=== PATIENT | female | born 1980 | race Asian ===

== ENCOUNTER 2017-10-08 18:13 | Emergency (ER) | payer OTHER ==
[~2017-10-08] VITALS: Ht 165.1 cm; Wt 59.1 kg
[2017-10-08] MEDS ORDERED: SODIUM CHLORIDE 0.9% 2,000 ML IV ONE (18:57)
[2017-10-08] MEDS ORDERED: INSULIN REGULAR, HUMAN 100 UNITS/ML IVP ONE (19:00)
[2017-10-08] MEDS ORDERED: HydrALAZINE HCL 20 MG/ML VIAL IVP ONE ×2 (19:00→19:30)
[2017-10-08 19:41] LABS: BASOPHILS % (AUTO) 0.4 % (0.0-2.0); EOSINOPHILS % (AUTO) 1.6 % (1.0-6.0); HEMATOCRIT 41.3 % (36-46); HEMOGLOBIN 14.2 g/dL (12.0-16.0); LYMPHOCYTES # (AUTO) 2.5 K/uL (1.0-4.8); LYMPHOCYTES % (AUTO) 17.7 % (22.0-44.0); MEAN CORPUSCULAR HEMOGLOBIN 30.6 pg (26.0-34.0); MEAN CORPUSCULAR HGB CONC 34.5 G/dL (31.0-37.0); MEAN CORPUSCULAR VOLUME 89 fL (80-100); MONOCYTES % (AUTO) 6.9 % (2.0-9.0); NEUTROPHILS # (AUTO) 10.5 K/uL (1.8-7.7); NEUTROPHILS % (AUTO) 73.4 % (40.0-70.0); PLATELET COUNT (AUTO) 365 K/uL (150-450); RED BLOOD CELL COUNT(AUTO) 4.66 MIL/uL (4.00-5.20)
[2017-10-08] MEDS ORDERED: MetFORMIN HCL 500 MG TABLET PO ONE (19:45)
[2017-10-08] MEDS ORDERED: METOPROLOL TARTRATE 5 MG/5 ML VIAL IVP ONE (19:45)
[2017-10-08] MEDS ORDERED: LISINOPRIL 10 MG TABLET PO ONE (19:45)
[2017-10-08 19:55] LABS: ALANINE AMINOTRANSFERASE 29 U/L (12-78); ALBUMIN 2.9 g/dL (3.4-5.0); ALKALINE PHOSPHATASE 115 U/L (46-116); ANION GAP 10 mmol/L (8-16); ASPARTATE AMINOTRANSFERASE 18 U/L (15-37); BILIRUBIN,TOTAL 0.3 mg/dL (0.1-1.0); CALCIUM, TOTAL 9.3 mg/dL (8.8-10.5); CARBON DIOXIDE 26 mmol/L (22-29); CHLORIDE 96 mmol/L (98-107); CREATININE 0.96 mg/dL (0.60-1.30); GLOMERULAR FILTR. RATE CALC > 60 mL/min (>60); HCG,QUANTITATIVE < 1 mIU/mL (0-6); LIPASE 380 U/L (73-393); POTASSIUM 4.1 mmol/L (3.5-5.1); SODIUM SERUM 132 mmol/L (136-145); TOTAL PROTEIN, SERUM 8.2 g/dL (6.4-8.2); UREA NITROGEN, BLOOD 19 mg/dL (7-18)
[2017-10-08 19:59] LABS: GLUCOSE,RANDOM 440 mg/dL (70-110)
[2017-10-08] MEDS ORDERED: ONDANSETRON HCL 4 MG/2 ML VIAL IVP ONE (20:30)
[2017-10-08 20:39] LABS: APPEARANCE,URINE CLOUDY (CLEAR); BILIRUBIN,URINE NEGATIVE (NEGATIVE); GLUCOSE, URINE (UA) >=1000 mg/dL (NEGATIVE); KETONES,URINE NEGATIVE (NEGATIVE); LEUKOCYTE ESTERASE ,URINE NEGATIVE (NEGATIVE); NITRATE,URINE POSITIVE (NEGATIVE); OCCULT BLOOD,URINE TRACE (NEGATIVE); PROTEIN,URINE SEE CONFIRM (NEGATIVE); UROBILINOGEN,URINE 0.2 mg/dL (<=1.0)
[2017-10-08 20:49] LABS: BACTERIA,URINE Many /HPF (None Seen); SQUAMOUS EPITHELIAL CELL,UR Many /LPF (None Seen); SULFOSALICYLIC ACID,URINE 2+ (Negative)
[2017-10-08 21:12] LABS: B-TYPE NATRIURETIC PEPTIDE 118 pg/mL (0-100)
[2017-10-08 21:37] LABS: GLUCOSE,POINT OF CARE 366 MG/DL (70-110)
[2017-10-08 23:23] VITALS: BP 137/90
== END 2017-10-08 23:27 | disposition home or self-care (01) ==
LOC: EMS 18:17
DX: I16.0 Hypertensive urgency (principal); E11.65 Type 2 diabetes mellitus with hyperglycemia; H53.8 Other visual disturbances; Z91.14 Patient's other noncompliance with medication regimen
CPT/HCPCS: 36415; 70450; 80053; 81001; 82962; 83690; 83880; 84484; 84702; 85025; 87077; 87086; 87186; 96374; 96375; 99291; J0360; J1815; J2405; J7030; 93005

== ENCOUNTER 2020-02-28 09:58 | Emergency (ER) | payer OTHER ==
[~2020-02-28] VITALS: Ht 162.6 cm; Wt 60.9 kg
[2020-02-28 11:18] VITALS: BP 151/88
== END 2020-02-28 11:19 | disposition home or self-care (01) ==
LOC: EMS 09:59
DX: E11.65 Type 2 diabetes mellitus with hyperglycemia (principal); I10 Essential (primary) hypertension; Z79.4 Long term (current) use of insulin

== ENCOUNTER 2020-04-28 17:31 | Emergency (ER) | payer OTHER ==
[~2020-04-28] VITALS: Ht 162.6 cm; Wt 61.4 kg
[2020-04-28] MEDS ORDERED: GABA-1181 PO (17:38)
[2020-04-28] MEDS ORDERED: ROSU20TA23 PO (17:38)
[2020-04-28] MEDS ORDERED: BASAGLAR INSULIN SQ (17:38)
[2020-04-28] MEDS ORDERED: DULA0.75 SQ (17:38)
[2020-04-28] MEDS ORDERED: HYDR-1475 PO (17:38)
[2020-04-28] MEDS ORDERED: LOSA100T58 PO (19:08)
[2020-04-28] MEDS ORDERED: AMLO10TA55 PO (19:08)
[2020-04-28] MEDS ORDERED: CETI10TA58 PO (19:08)
[2020-04-28] MEDS ORDERED: GLIP5TAB11 PO (19:08)
[2020-04-28] MEDS ORDERED: INSU100I26 SQ (19:08)
[2020-04-28] MEDS ORDERED: ACETAMINOPHEN 325 MG TABLET PO ONE (19:15)
[2020-04-28] MEDS ORDERED: SODIUM CHLORIDE 0.9% 1,000 ML IV ONE (19:15)
[2020-04-28 19:29] LABS: BASOPHILS % (AUTO) 0.6 % (0.0-2.0); EOSINOPHILS % (AUTO) 4.6 % (1.0-6.0); HEMOGLOBIN 14.5 g/dL (12.0-16.0); LYMPHOCYTES # (AUTO) 2.4 K/uL (1.0-4.8); LYMPHOCYTES % (AUTO) 19.3 % (22.0-44.0); MEAN CORPUSCULAR HEMOGLOBIN 29.4 pg (26.0-34.0); MEAN CORPUSCULAR HGB CONC 32.9 G/dL (31.0-37.0); MEAN CORPUSCULAR VOLUME 90 fL (80-100); MONOCYTES # (AUTO) 0.9 K/uL (0.1-1.0); MONOCYTES % (AUTO) 7.3 % (2.0-9.0); NEUTROPHILS # (AUTO) 8.4 K/uL (1.8-7.7); NEUTROPHILS % (AUTO) 68.2 % (40.0-70.0); PLATELET COUNT (AUTO) 326 K/uL (150-450); RED BLOOD CELL COUNT(AUTO) 4.91 MIL/uL (4.00-5.20); RED CELL DISTRIBUTION WIDTH 12.6 % (11.5-14.5)
[2020-04-28 19:38] LABS: ANION GAP 8 mmol/L (8-16); CALCIUM, TOTAL 9.5 mg/dL (8.8-10.5); CARBON DIOXIDE 29 mmol/L (22-29); CHLORIDE 92 mmol/L (98-107); CREATININE 1.94 mg/dL (0.60-1.30); GLOMERULAR FILTR. RATE CALC 29 mL/min (>60); GLUCOSE,RANDOM 386 mg/dL (70-110); POTASSIUM 3.6 mmol/L (3.5-5.1); SODIUM SERUM 129 mmol/L (136-145); UREA NITROGEN, BLOOD 30 mg/dL (7-18)
[2020-04-28 19:50] LABS: HCG,QUANTITATIVE < 1 mIU/mL (0-6)
[2020-04-28 20:18] VITALS: BP 150/90
[2020-04-28 20:21] LABS: APPEARANCE,URINE CLOUDY (CLEAR); BILIRUBIN,URINE NEGATIVE (NEGATIVE); GLUCOSE, URINE (UA) >=1000 mg/dL (NEGATIVE); KETONES,URINE NEGATIVE (NEGATIVE); LEUKOCYTE ESTERASE ,URINE MODERATE (NEGATIVE); NITRATE,URINE POSITIVE (NEGATIVE); OCCULT BLOOD,URINE MODERATE (NEGATIVE); PROTEIN,URINE SEE CONFIRM (NEGATIVE); UROBILINOGEN,URINE 0.2 mg/dL (<=1.0)
[2020-04-28 20:34] LABS: SULFOSALICYLIC ACID,URINE 4+ (Negative)
[2020-04-28 20:36] LABS: BACTERIA,URINE Many /HPF (None Seen)
[2020-04-28 20:37] LABS: WBC,URINE 51-100 /HPF (0-5)
== END 2020-04-28 20:19 | disposition home or self-care (01) ==
LOC: EMS 17:34
DX: N39.0 Urinary tract infection, site not specified (principal); N28.9 Disorder of kidney and ureter, unspecified; E11.65 Type 2 diabetes mellitus with hyperglycemia; I10 Essential (primary) hypertension; Z91.040 Latex allergy status
CPT/HCPCS: 36415; 80048; 81001; 82962; 84702; 85025; 87086; 99283; J7030

== ENCOUNTER 2022-04-22 19:20 | Inpatient (IN) | payer OTHER ==
[~2022-04-22] VITALS: Ht 162.6 cm; Wt 67.0 kg
[~2022-04-22 19:20] MED LIST: AMLO10TA55 PO; CETI10TA58 PO; DULA0.75 SQ; GABA-1181 PO; GLIP5TAB11 PO; HYDR25TA2 PO; INSU100I26 SQ; LOSA100T58 PO; ROSU20TA73 PO
[2022-04-22] MEDS ORDERED: AMLO2.5T29 PO (19:42)
[2022-04-22] MEDS ORDERED: GABA-1181 PO ×2 (19:42→21:28)
[2022-04-22] MEDS ORDERED: INSU100V SQ ×2 (19:42)
[2022-04-22] MEDS ORDERED: TAMS-13 PO (19:42)
[2022-04-22] MEDS ORDERED: LOSA-381 PO (19:42)
[2022-04-22] MEDS ORDERED: AZEL6DRO5 OU (19:42)
[2022-04-22] MEDS ORDERED: KETO10DR3 OU (19:42)
[2022-04-22] MEDS ORDERED: CHOL500013 PO (19:42)
[2022-04-22] MEDS ORDERED: ALBU8HFA IH (19:43)
[2022-04-22 21:08] LABS: EOSINOPHILS % (AUTO) 5.5 % (1.0-6.0); HEMATOCRIT 34.7 % (36-46); HEMOGLOBIN 11.3 g/dL (12.0-16.0); LYMPHOCYTES # (AUTO) 2.8 K/uL (1.0-4.8); LYMPHOCYTES % (AUTO) 21.6 % (22.0-44.0); MEAN CORPUSCULAR HEMOGLOBIN 29.7 pg (26.0-34.0); MEAN CORPUSCULAR HGB CONC 32.5 G/dL (31.0-37.0); MEAN CORPUSCULAR VOLUME 92 fL (80-100); MONOCYTES # (AUTO) 1.2 K/uL (0.1-1.0); MONOCYTES % (AUTO) 9.2 % (2.0-9.0); NEUTROPHILS # (AUTO) 8.2 K/uL (1.8-7.7); NEUTROPHILS % (AUTO) 62.7 % (40.0-70.0); PLATELET COUNT (AUTO) 407 K/uL (150-450); RED BLOOD CELL COUNT(AUTO) 3.79 MIL/uL (4.00-5.20)
[2022-04-22 21:27] LABS: B-TYPE NATRIURETIC PEPTIDE 75 pg/mL (0-100)
[2022-04-22 21:28] LABS: ANION GAP 11 mmol/L (8-16); CALCIUM, TOTAL 8.3 mg/dL (8.8-10.5); CARBON DIOXIDE 16 mmol/L (22-29); CHLORIDE 109 mmol/L (98-107); CREATININE 6.63 mg/dL (0.60-1.30); GLOMERULAR FILTR. RATE CALC 7 mL/min (>60); GLUCOSE,RANDOM 195 mg/dL (70-110); POTASSIUM 5.5 mmol/L (3.5-5.1); SODIUM SERUM 136 mmol/L (136-145); UREA NITROGEN, BLOOD 63 mg/dL (7-18)
[2022-04-22] MEDS ORDERED: MAGN400T57 PO (21:28)
[2022-04-22] MEDS ORDERED: LOSA-382 PO (21:28)
[2022-04-22] MEDS ORDERED: ACET-66 PO (21:28)
[2022-04-22] MEDS ORDERED: AMLO2.5T96 PO (21:28)
[2022-04-22] MEDS ORDERED: ROSU20TA73 PO (21:28)
[2022-04-22] MEDS ORDERED: CHOL500062 PO (21:28)
[2022-04-22] MEDS ORDERED: INSU100I26 SQ (21:28)
[2022-04-22 21:45] LABS: ALANINE AMINOTRANSFERASE 22 U/L (12-78); ALBUMIN 1.5 g/dL (3.4-5.0); ALKALINE PHOSPHATASE 92 U/L (46-116); ASPARTATE AMINOTRANSFERASE 16 U/L (15-37); BILIRUBIN,TOTAL 0.1 mg/dL (0.1-1.0); CREATINE KINASE, TOTAL ONLY 501 U/L (26-192); HCG,QUANTITATIVE < 1 mIU/mL (0-6); TOTAL PROTEIN, SERUM 5.7 g/dL (6.4-8.2)
[2022-04-22] MEDS ORDERED: LABETALOL HCL 5 MG/ML 20 ML VIAL IVP ONE (22:45)
[2022-04-22 22:48] LABS: INR 0.9 (0.9-1.1); PROTHROMBIN TIME 9.8 SEC (9.4-11.6)
[2022-04-22] MEDS ORDERED: INSLAN SQ (23:08)
[2022-04-22] MEDS ORDERED: [UNRECOGNIZED DRUG - REMARK] AU (23:08)
[2022-04-22] MEDS ORDERED: HydrALAZINE HCL 20 MG/ML VIAL IVP PRN (23:15)
[2022-04-22] MEDS ORDERED: DEXTROSE 50%-WATER 25 GM/50 ML SYRINGE IVP ONE (23:15)
[2022-04-22] MEDS ORDERED: SODIUM BICARBONATE 650 MG TABLET PO SCH (23:15)
[2022-04-22] MEDS ORDERED: DEXTROSE 50%-WATER 25 GM/50 ML SYRINGE IVP PRN (23:15)
[2022-04-22] MEDS ORDERED: LABETALOL HCL 5 MG/ML 20 ML VIAL IVP PRN (23:15)
[2022-04-22] MEDS ORDERED: INSULIN REGULAR, HUMAN 100 UNITS/ML IVP ONE (23:15)
[2022-04-22 23:19] LABS: COVID AG,FIA SOURCE NASAL SWAB
[2022-04-22] MEDS: INSULIN GLARGINE,HUM.REC.ANLOG 100 UNITS/ML SQ SCH (23:30)
[2022-04-22 23:36] LABS: GLUCOSE,POINT OF CARE 156 MG/DL (70-110)
[2022-04-22 23:37] LABS: THYROID STIMULATING HORMONE 0.87 uIU/mL (0.36-3.74)
[2022-04-22 23:57] LABS: APPEARANCE,URINE HAZY (CLEAR); BILIRUBIN,URINE NEGATIVE (NEGATIVE); GLUCOSE, URINE (UA) 300-500 mg/dL (NEGATIVE); KETONES,URINE NEGATIVE (NEGATIVE); LEUKOCYTE ESTERASE ,URINE MODERATE (NEGATIVE); NITRATE,URINE NEGATIVE (NEGATIVE); OCCULT BLOOD,URINE LARGE (NEGATIVE); PH,URINE 6.5 (5.0-8.0); PROTEIN,URINE 300-600,SEE CONFIRM mg/dL (NEGATIVE); SPECIFIC GRAVITIY, URINE 1.013 (1.003-1.030); UROBILINOGEN,URINE <=1.0 mg/dL (<=1.0)
[2022-04-23] MEDS ORDERED: CefTRIAXone 1 GM/DEXTROSE 50 ML IV ONE (00:15)
[2022-04-23 00:16] LABS: BACTERIA,URINE Many /HPF (None Seen); SULFOSALICYLIC ACID,URINE 4+ (Negative); WBC,URINE 26-50 /HPF (0-5)
[2022-04-23 00:17] LABS: SQUAMOUS EPITHELIAL CELL,UR Few /LPF (None Seen)
[2022-04-23 01:01] LABS: GLUCOSE,POINT OF CARE 152 MG/DL (70-110)
[2022-04-23 01:30] VITALS: BP 157/96
[2022-04-23] MEDS: HEPARIN SODIUM,PORCINE 5,000 UNITS/ML VIAL SQ SCH ×4 (01:59→23:23)
[2022-04-23] MEDS: CefTRIAXone 1 GM/DEXTROSE 50 ML IV SCH (02:15)
[2022-04-23] MEDS ORDERED: PNEUMOCOCCAL VACCINE POLYVALENT 0.5 ML VIAL [PPSV23] IM. ONE (03:00)
[2022-04-23 06:04] LABS: BASOPHILS % (AUTO) 1.2 % (0.0-2.0); EOSINOPHILS % (AUTO) 5.1 % (1.0-6.0); HEMATOCRIT 34.4 % (36-46); HEMOGLOBIN 11.1 g/dL (12.0-16.0); LYMPHOCYTES # (AUTO) 2.9 K/uL (1.0-4.8); LYMPHOCYTES % (AUTO) 24.1 % (22.0-44.0); MEAN CORPUSCULAR HEMOGLOBIN 29.7 pg (26.0-34.0); MEAN CORPUSCULAR HGB CONC 32.3 G/dL (31.0-37.0); MEAN CORPUSCULAR VOLUME 92 fL (80-100); MONOCYTES # (AUTO) 0.9 K/uL (0.1-1.0); MONOCYTES % (AUTO) 7.3 % (2.0-9.0); NEUTROPHILS # (AUTO) 7.6 K/uL (1.8-7.7); NEUTROPHILS % (AUTO) 62.3 % (40.0-70.0); PLATELET COUNT (AUTO) 440 K/uL (150-450); RED BLOOD CELL COUNT(AUTO) 3.73 MIL/uL (4.00-5.20); RED CELL DISTRIBUTION WIDTH 15.2 % (11.5-14.5)
[2022-04-23 07:28] LABS: CALCIUM, TOTAL 7.9 mg/dL (8.8-10.5); CREATININE 6.39 mg/dL (0.60-1.30); MAGNESIUM 2.6 mg/dL (1.80-2.40); PHOSPHORUS 6.7 mg/dL (2.5-4.9); POTASSIUM 5.3 mmol/L (3.5-5.1)
[2022-04-23 09:11] VITALS: BP 156/100
[2022-04-23] MEDS: ACETAMINOPHEN 325 MG TABLET PO PRN ×2 (09:47→17:17)
[2022-04-23 11:00] VITALS: BP 164/94
[2022-04-23] MEDS ORDERED: CHOL500013 PO (11:09)
[2022-04-23] MEDS ORDERED: INSU100V SQ ×2 (11:09)
[2022-04-23] MEDS ORDERED: CETI10TA58 PO (11:09)
[2022-04-23] MEDS ORDERED: ROSU20TA73 PO (11:09)
[2022-04-23] MEDS ORDERED: AMLO2.5T96 PO (11:09)
[2022-04-23] MEDS ORDERED: MAGN400T57 PO (11:09)
[2022-04-23] MEDS ORDERED: DULA0.75 SQ (11:09)
[2022-04-23] MEDS ORDERED: KETO10DR3 OU (11:09)
[2022-04-23] MEDS ORDERED: GABA-1181 PO ×2 (11:09)
[2022-04-23] MEDS ORDERED: AZEL6DRO5 OU (11:09)
[2022-04-23] MEDS ORDERED: GLIP5TAB11 PO (11:09)
[2022-04-23] MEDS ORDERED: LOSA-381 PO (11:09)
[2022-04-23] MEDS ORDERED: TAMS-13 PO (11:09)
[2022-04-23] MEDS ORDERED: ALBU8HFA IH (11:09)
[2022-04-23] MEDS ORDERED: HYDR25TA2 PO (11:10)
[2022-04-23] MEDS: INSULIN LISPRO 100 UNITS/ML SQ PRN (11:59)
[2022-04-23 14:23] VITALS: BP 150/92
[2022-04-23 18:36] LABS: GLUCOMETER DEV NAME(LOC) 5N.1C; GLUCOSE,POINT OF CARE 128 MG/DL (70-110)
[2022-04-23 18:37] LABS: GLUCOMETER DEV NAME(LOC) 5N.1C; GLUCOSE,POINT OF CARE 148 MG/DL (70-110)
[2022-04-23] MEDS ORDERED: SODIUM ZIRCONIUM CYCLOSILICATE 5 GM POWDER PACKET PO ONE (21:00)
[2022-04-23] MEDS: INSULIN GLARGINE,HUM.REC.ANLOG 100 UNITS/ML SQ SCH (21:00)
[2022-04-23 21:12] LABS: GLUCOMETER DEV NAME(LOC) 5S.1B; GLUCOSE,POINT OF CARE 122 MG/DL (70-110)
[2022-04-23 21:12] LABS: GLUCOMETER DEV NAME(LOC) 5S.1B; GLUCOSE,POINT OF CARE 145 MG/DL (70-110)
[2022-04-23 21:12] LABS: GLUCOMETER DEV NAME(LOC) 5S.1B; GLUCOSE,POINT OF CARE 121 MG/DL (70-110)
[2022-04-23] MEDS: HydrALAZINE HCL 25 MG TABLET PO SCH (21:17)
[2022-04-23] MEDS: GABAPENTIN 300 MG CAPSULE PO PRN (21:17)
[2022-04-23] MEDS: CITRIC ACID/SODIUM CITRATE 30 ML SOLUTION UDCUP PO SCH (21:17)
[2022-04-23 21:21] VITALS: BP 166/93
[2022-04-24] VITALS (7 sets, daily range): BP systolic 120–158; BP diastolic 75–109
[2022-04-24] MEDS: CefTRIAXone 1 GM/DEXTROSE 50 ML IV SCH (02:15)
[2022-04-24 03:41] LABS: CREATININE,URINE 52.8 mg/dL (30.0-125.0)
[2022-04-24 04:14] LABS: CREATININE,SERUM FOR CRCL 6.39 mg/dL (0.60-1.30)
[2022-04-24 06:43] LABS: BASOPHILS % (AUTO) 0.9 % (0.0-2.0); EOSINOPHILS % (AUTO) 3.9 % (1.0-6.0); HEMATOCRIT 33.6 % (36-46); HEMOGLOBIN 11.1 g/dL (12.0-16.0); LYMPHOCYTES # (AUTO) 2.5 K/uL (1.0-4.8); LYMPHOCYTES % (AUTO) 20.8 % (22.0-44.0); MEAN CORPUSCULAR HEMOGLOBIN 30.3 pg (26.0-34.0); MEAN CORPUSCULAR HGB CONC 32.9 G/dL (31.0-37.0); MEAN CORPUSCULAR VOLUME 92 fL (80-100); MONOCYTES # (AUTO) 0.9 K/uL (0.1-1.0); MONOCYTES % (AUTO) 7.5 % (2.0-9.0); NEUTROPHILS # (AUTO) 7.9 K/uL (1.8-7.7); NEUTROPHILS % (AUTO) 66.9 % (40.0-70.0); PLATELET COUNT (AUTO) 442 K/uL (150-450); RED BLOOD CELL COUNT(AUTO) 3.65 MIL/uL (4.00-5.20); RED CELL DISTRIBUTION WIDTH 15.4 % (11.5-14.5)
[2022-04-24] MEDS: ACETAMINOPHEN 325 MG TABLET PO PRN ×3 (06:48→21:28)
[2022-04-24] MEDS: INSULIN LISPRO 100 UNITS/ML SQ PRN (06:51)
[2022-04-24 07:11] LABS: GLUCOMETER DEV NAME(LOC) 5S.1B; GLUCOSE,POINT OF CARE 147 MG/DL (70-110)
[2022-04-24 07:19] LABS: HEMOGLOBIN A1C 6.2 % (3.8-5.6)
[2022-04-24 07:20] LABS: CALCIUM, TOTAL 8.4 mg/dL (8.8-10.5); CREATININE 6.2 mg/dL (0.60-1.30); POTASSIUM 5.4 mmol/L (3.5-5.1)
[2022-04-24 07:25] LABS: % IRON SATURATION 33.6 % (22-44)
[2022-04-24] MEDS: CITRIC ACID/SODIUM CITRATE 30 ML SOLUTION UDCUP PO SCH ×2 (08:35→21:27)
[2022-04-24] MEDS: HydrALAZINE HCL 25 MG TABLET PO SCH ×2 (08:36→21:28)
[2022-04-24] MEDS: FUROSEMIDE 40 MG/4 ML VIAL IVP SCH ×2 (08:36→21:28)
[2022-04-24] MEDS: AmLODIPine BESYLATE 10 MG TABLET PO SCH (08:37)
[2022-04-24] MEDS: HEPARIN SODIUM,PORCINE 5,000 UNITS/ML VIAL SQ SCH ×3 (09:02→23:23)
[2022-04-24 12:43] LABS: CREATININE,URINE RANDOM 50.9 mg/dL (30.0-125.0)
[2022-04-24 21:26] LABS: GLUCOMETER DEV NAME(LOC) 5S.2B; GLUCOSE,POINT OF CARE 174 MG/DL (70-110)
[2022-04-24] MEDS: INSULIN GLARGINE,HUM.REC.ANLOG 100 UNITS/ML SQ SCH (21:27)
[2022-04-24] MEDS: GABAPENTIN 300 MG CAPSULE PO PRN (21:27)
[2022-04-25 00:22] VITALS: BP 124/64
[2022-04-25] MEDS: CefTRIAXone 1 GM/DEXTROSE 50 ML IV SCH (03:22)
[2022-04-25] MEDS: ACETAMINOPHEN 325 MG TABLET PO PRN ×3 (04:01→22:12)
[2022-04-25 05:10] VITALS: BP 118/59
[2022-04-25 05:47] LABS: GLUCOMETER DEV NAME(LOC) 5S.2B; GLUCOSE,POINT OF CARE 134 MG/DL (70-110)
[2022-04-25 06:47] LABS: GLUCOMETER DEV NAME(LOC) 5S.1B; GLUCOSE,POINT OF CARE 129 MG/DL (70-110)
[2022-04-25 06:47] LABS: GLUCOMETER DEV NAME(LOC) 5S.1B; GLUCOSE,POINT OF CARE 136 MG/DL (70-110)
[2022-04-25 06:50] LABS: BASOPHILS % (AUTO) 1.2 % (0.0-2.0); EOSINOPHILS % (AUTO) 3.8 % (1.0-6.0); HEMATOCRIT 34.3 % (36-46); HEMOGLOBIN 11.3 g/dL (12.0-16.0); LYMPHOCYTES # (AUTO) 2.1 K/uL (1.0-4.8); LYMPHOCYTES % (AUTO) 17.6 % (22.0-44.0); MEAN CORPUSCULAR HEMOGLOBIN 30.3 pg (26.0-34.0); MEAN CORPUSCULAR HGB CONC 33.1 G/dL (31.0-37.0); MEAN CORPUSCULAR VOLUME 92 fL (80-100); MONOCYTES # (AUTO) 0.8 K/uL (0.1-1.0); MONOCYTES % (AUTO) 7.1 % (2.0-9.0); NEUTROPHILS # (AUTO) 8.3 K/uL (1.8-7.7); NEUTROPHILS % (AUTO) 70.3 % (40.0-70.0); PLATELET COUNT (AUTO) 439 K/uL (150-450); RED BLOOD CELL COUNT(AUTO) 3.74 MIL/uL (4.00-5.20); RED CELL DISTRIBUTION WIDTH 15.2 % (11.5-14.5)
[2022-04-25 06:55] LABS: CALCIUM, TOTAL 8.3 mg/dL (8.8-10.5); CREATININE 6.18 mg/dL (0.60-1.30); POTASSIUM 4.6 mmol/L (3.5-5.1)
[2022-04-25 08:08] VITALS: BP 143/72
[2022-04-25] MEDS: FUROSEMIDE 40 MG/4 ML VIAL IVP SCH ×2 (08:44→22:09)
[2022-04-25] MEDS: HydrALAZINE HCL 25 MG TABLET PO SCH ×2 (08:44→22:10)
[2022-04-25] MEDS: AmLODIPine BESYLATE 10 MG TABLET PO SCH (08:44)
[2022-04-25] MEDS: HEPARIN SODIUM,PORCINE 5,000 UNITS/ML VIAL SQ SCH ×3 (08:44→23:38)
[2022-04-25] MEDS: CITRIC ACID/SODIUM CITRATE 30 ML SOLUTION UDCUP PO SCH ×2 (08:45→22:10)
[2022-04-25] MEDS: SODIUM ZIRCONIUM CYCLOSILICATE 5 GM POWDER PACKET PO SCH (10:46)
[2022-04-25 11:37] VITALS: BP 128/73
[2022-04-25 13:06] LABS: GLUCOMETER DEV NAME(LOC) 5S.2B; GLUCOSE,POINT OF CARE 139 MG/DL (70-110)
[2022-04-25 15:59] VITALS: BP 136/71
[2022-04-25] MEDS: INSULIN LISPRO 100 UNITS/ML SQ PRN (17:27)
[2022-04-25 18:21] LABS: GLUCOMETER DEV NAME(LOC) 5S.2B; GLUCOSE,POINT OF CARE 178 MG/DL (70-110)
[2022-04-25 20:03] VITALS: BP 142/81
[2022-04-25] MEDS: INSULIN GLARGINE,HUM.REC.ANLOG 100 UNITS/ML SQ SCH (21:00)
[2022-04-25] MEDS: GABAPENTIN 300 MG CAPSULE PO PRN (23:43)
[2022-04-26 00:20] VITALS: BP 120/59
[2022-04-26 04:31] VITALS: BP 129/63
[2022-04-26] MEDS: CefTRIAXone 1 GM/DEXTROSE 50 ML IV SCH (04:32)
[2022-04-26 06:06] LABS: GLUCOMETER DEV NAME(LOC) 5S.2B; GLUCOSE,POINT OF CARE 116 MG/DL (70-110)
[2022-04-26 06:33] LABS: BASOPHILS % (AUTO) 1.4 % (0.0-2.0); EOSINOPHILS % (AUTO) 2.6 % (1.0-6.0); HEMATOCRIT 32.1 % (36-46); HEMOGLOBIN 10.6 g/dL (12.0-16.0); LYMPHOCYTES # (AUTO) 3.2 K/uL (1.0-4.8); LYMPHOCYTES % (AUTO) 29.4 % (22.0-44.0); MEAN CORPUSCULAR HEMOGLOBIN 30.5 pg (26.0-34.0); MEAN CORPUSCULAR HGB CONC 33.1 G/dL (31.0-37.0); MEAN CORPUSCULAR VOLUME 92 fL (80-100); MONOCYTES # (AUTO) 0.8 K/uL (0.1-1.0); MONOCYTES % (AUTO) 7.2 % (2.0-9.0); NEUTROPHILS # (AUTO) 6.5 K/uL (1.8-7.7); NEUTROPHILS % (AUTO) 59.4 % (40.0-70.0); PLATELET COUNT (AUTO) 448 K/uL (150-450); RED BLOOD CELL COUNT(AUTO) 3.48 MIL/uL (4.00-5.20); RED CELL DISTRIBUTION WIDTH 15.2 % (11.5-14.5)
[2022-04-26 06:46] LABS: CALCIUM, TOTAL 8.7 mg/dL (8.8-10.5); CREATININE 6.18 mg/dL (0.60-1.30); POTASSIUM 4.4 mmol/L (3.5-5.1)
[2022-04-26 07:45] VITALS: BP 136/70
[2022-04-26] MEDS ORDERED: SODIUM CHLORIDE 0.9% 1,000 ML ONE (08:00)
[2022-04-26] MEDS ORDERED: SODIUM CHLORIDE 0.9% 1,000 ML IV ONE (09:00)
[2022-04-26] MEDS ORDERED: SODIUM CHLORIDE 0.9% 0 ML ONE ×2 (09:17)
[2022-04-26] MEDS ORDERED: HEPARIN SODIUM,PORCINE 5,000 UNITS/ML VIAL ONE (09:17)
[2022-04-26] MEDS ORDERED: LIDOCAINE/PF 1% 30 ML VIAL ONE (09:17)
[2022-04-26] MEDS ORDERED: ETHYL ALCOHOL 62% ANTISEPTIC NASAL SANITIZER 0.6 ML AMPUL NASAL ONE (09:45)
[2022-04-26] MEDS ORDERED: ACETAMINOPHEN 1000 MG/ISO-OSM 100 ML IV ONE ×2 (11:00→11:13)
[2022-04-26] MEDS ORDERED: FentaNYL CITRATE PF 100 MCG/2 ML VIAL IVP ONE (12:00)
[2022-04-26] MEDS ORDERED: PROPOFOL 1% 20 ML VIAL IVP ONE (12:00)
[2022-04-26] MEDS ORDERED: HEPARIN SODIUM,PORCINE 1,000 UNITS/ML 10 ML VIAL IVP ONE (12:00)
[2022-04-26] MEDS ORDERED: ONDANSETRON HCL 4 MG/2 ML VIAL IVP ONE (12:00)
[2022-04-26] MEDS ORDERED: MIDAZOLAM HCL 2 MG/2 ML VIAL IVP ONE (12:00)
[2022-04-26] MEDS ORDERED: LIDOCAINE/PF 2% 5 ML SYRINGE IVP ONE (12:00)
[2022-04-26 12:30] VITALS: BP 142/97
[2022-04-26 12:31] LABS: GLUCOMETER DEV NAME(LOC) 5N.3; GLUCOSE,POINT OF CARE 97 MG/DL (70-110)
[2022-04-26] MEDS: SODIUM ZIRCONIUM CYCLOSILICATE 5 GM POWDER PACKET PO SCH (13:08)
[2022-04-26] MEDS: HEPARIN SODIUM,PORCINE 5,000 UNITS/ML VIAL SQ SCH ×3 (13:09→23:04)
[2022-04-26] MEDS: HydrALAZINE HCL 25 MG TABLET PO SCH ×2 (13:09→20:51)
[2022-04-26] MEDS: FUROSEMIDE 40 MG/4 ML VIAL IVP SCH ×2 (13:09→20:51)
[2022-04-26] MEDS: AmLODIPine BESYLATE 10 MG TABLET PO SCH (13:10)
[2022-04-26] MEDS: CITRIC ACID/SODIUM CITRATE 30 ML SOLUTION UDCUP PO SCH ×2 (13:10→20:51)
[2022-04-26 16:25] VITALS: BP 141/76
[2022-04-26] MEDS: OXYGEN THERAPY IH SCH (20:00)
[2022-04-26 20:40] VITALS: BP 141/82
[2022-04-26] MEDS: HYDROCODONE/ACETAMINOPHEN 5-325 MG TABLET PO PRN (20:51)
[2022-04-26] MEDS: INSULIN LISPRO 100 UNITS/ML SQ PRN (20:59)
[2022-04-26] MEDS: INSULIN GLARGINE,HUM.REC.ANLOG 100 UNITS/ML SQ SCH (21:00)
[2022-04-27 00:11] LABS: GLUCOMETER DEV NAME(LOC) 5N.1C; GLUCOSE,POINT OF CARE 116 MG/DL (70-110)
[2022-04-27 00:12] VITALS: BP 118/71
[2022-04-27] MEDS: CefTRIAXone 1 GM/DEXTROSE 50 ML IV SCH (03:29)
[2022-04-27 05:26] VITALS: BP 137/79
[2022-04-27] MEDS: HYDROCODONE/ACETAMINOPHEN 5-325 MG TABLET PO PRN ×2 (05:45→16:26)
[2022-04-27 06:33] LABS: BASOPHILS % (AUTO) 0.9 % (0.0-2.0); EOSINOPHILS % (AUTO) 2.4 % (1.0-6.0); HEMATOCRIT 30.9 % (36-46); HEMOGLOBIN 9.9 g/dL (12.0-16.0); LYMPHOCYTES # (AUTO) 1.6 K/uL (1.0-4.8); LYMPHOCYTES % (AUTO) 16.1 % (22.0-44.0); MEAN CORPUSCULAR HEMOGLOBIN 30.3 pg (26.0-34.0); MEAN CORPUSCULAR HGB CONC 32.2 G/dL (31.0-37.0); MEAN CORPUSCULAR VOLUME 94 fL (80-100); MONOCYTES # (AUTO) 0.8 K/uL (0.1-1.0); MONOCYTES % (AUTO) 8.3 % (2.0-9.0); NEUTROPHILS # (AUTO) 7.4 K/uL (1.8-7.7); NEUTROPHILS % (AUTO) 72.3 % (40.0-70.0); PLATELET COUNT (AUTO) 351 K/uL (150-450); RED BLOOD CELL COUNT(AUTO) 3.28 MIL/uL (4.00-5.20); RED CELL DISTRIBUTION WIDTH 15.6 % (11.5-14.5)
[2022-04-27 06:50] LABS: CALCIUM, TOTAL 8.3 mg/dL (8.8-10.5); CREATININE 6.33 mg/dL (0.60-1.30); POTASSIUM 4.6 mmol/L (3.5-5.1)
[2022-04-27 07:49] VITALS: BP 129/77
[2022-04-27] MEDS: OXYGEN THERAPY IH SCH (08:00)
[2022-04-27 08:35] LABS: GLUCOMETER DEV NAME(LOC) 5N.3; GLUCOSE,POINT OF CARE 227 MG/DL (70-110)
[2022-04-27 08:36] LABS: GLUCOMETER DEV NAME(LOC) 5N.3; GLUCOSE,POINT OF CARE 126 MG/DL (70-110)
[2022-04-27] MEDS: CITRIC ACID/SODIUM CITRATE 30 ML SOLUTION UDCUP PO SCH ×2 (08:46→20:54)
[2022-04-27] MEDS: HydrALAZINE HCL 25 MG TABLET PO SCH ×2 (08:47→20:53)
[2022-04-27] MEDS: HEPARIN SODIUM,PORCINE 5,000 UNITS/ML VIAL SQ SCH ×2 (08:47→16:17)
[2022-04-27] MEDS: FUROSEMIDE 40 MG/4 ML VIAL IVP SCH ×2 (08:47→20:53)
[2022-04-27] MEDS: AmLODIPine BESYLATE 10 MG TABLET PO SCH (08:47)
[2022-04-27] MEDS: ACETAMINOPHEN 325 MG TABLET PO PRN ×2 (09:18→20:52)
[2022-04-27] MEDS: SODIUM ZIRCONIUM CYCLOSILICATE 5 GM POWDER PACKET PO SCH (11:05)
[2022-04-27] MEDS: ONDANSETRON HCL 4 MG/2 ML VIAL IVP PRN ×2 (11:13→20:54)
[2022-04-27 11:31] VITALS: BP 142/89
[2022-04-27 16:13] VITALS: BP 145/87
[2022-04-27] MEDS: INSULIN LISPRO 100 UNITS/ML SQ PRN (17:44)
[2022-04-27 18:51] LABS: GLUCOMETER DEV NAME(LOC) 5S.2B; GLUCOSE,POINT OF CARE 86 MG/DL (70-110)
[2022-04-27 18:51] LABS: GLUCOMETER DEV NAME(LOC) 5S.2B; GLUCOSE,POINT OF CARE 147 MG/DL (70-110)
[2022-04-27] MEDS: INSULIN GLARGINE,HUM.REC.ANLOG 100 UNITS/ML SQ SCH (20:52)
[2022-04-27 20:53] VITALS: BP 129/86
[2022-04-28] VITALS (7 sets, daily range): BP systolic 127–148; BP diastolic 57–90
[2022-04-28] MEDS: HEPARIN SODIUM,PORCINE 5,000 UNITS/ML VIAL SQ SCH ×4 (00:14→23:44)
[2022-04-28] MEDS: HYDROCODONE/ACETAMINOPHEN 5-325 MG TABLET PO PRN ×2 (00:15→06:23)
[2022-04-28] MEDS: CefTRIAXone 1 GM/DEXTROSE 50 ML IV SCH (04:17)
[2022-04-28 06:30] LABS: BASOPHILS % (AUTO) 1.1 % (0.0-2.0); EOSINOPHILS % (AUTO) 4.1 % (1.0-6.0); HEMATOCRIT 32.9 % (36-46); HEMOGLOBIN 10.7 g/dL (12.0-16.0); LYMPHOCYTES # (AUTO) 2.7 K/uL (1.0-4.8); LYMPHOCYTES % (AUTO) 26.2 % (22.0-44.0); MEAN CORPUSCULAR HGB CONC 32.5 G/dL (31.0-37.0); MEAN CORPUSCULAR VOLUME 92 fL (80-100); MONOCYTES # (AUTO) 0.9 K/uL (0.1-1.0); MONOCYTES % (AUTO) 8.5 % (2.0-9.0); NEUTROPHILS # (AUTO) 6.1 K/uL (1.8-7.7); NEUTROPHILS % (AUTO) 60.1 % (40.0-70.0); PLATELET COUNT (AUTO) 397 K/uL (150-450); RED BLOOD CELL COUNT(AUTO) 3.57 MIL/uL (4.00-5.20); RED CELL DISTRIBUTION WIDTH 15.5 % (11.5-14.5)
[2022-04-28 06:50] LABS: ALBUMIN 1.7 g/dL (3.4-5.0); BILIRUBIN,TOTAL 0.1 mg/dL (0.1-1.0); CALCIUM, TOTAL 8.8 mg/dL (8.8-10.5); CREATININE 6.38 mg/dL (0.60-1.30); POTASSIUM 4.3 mmol/L (3.5-5.1); TOTAL PROTEIN, SERUM 5.8 g/dL (6.4-8.2)
[2022-04-28 08:11] LABS: GLUCOMETER DEV NAME(LOC) 5S.2B; GLUCOSE,POINT OF CARE 154 MG/DL (70-110)
[2022-04-28 08:11] LABS: GLUCOMETER DEV NAME(LOC) 5S.2B; GLUCOSE,POINT OF CARE 120 MG/DL (70-110)
[2022-04-28] MEDS: AmLODIPine BESYLATE 10 MG TABLET PO SCH (08:38)
[2022-04-28] MEDS: HydrALAZINE HCL 25 MG TABLET PO SCH (08:38)
[2022-04-28] MEDS: CITRIC ACID/SODIUM CITRATE 30 ML SOLUTION UDCUP PO SCH ×2 (08:38→21:00)
[2022-04-28] MEDS: FUROSEMIDE 40 MG/4 ML VIAL IVP SCH (08:38)
[2022-04-28] MEDS: ONDANSETRON HCL 4 MG/2 ML VIAL IVP PRN ×2 (08:58→22:27)
[2022-04-28] MEDS: SODIUM ZIRCONIUM CYCLOSILICATE 5 GM POWDER PACKET PO SCH (09:00)
[2022-04-28 12:01] LABS: GLUCOMETER DEV NAME(LOC) 5N.3; GLUCOSE,POINT OF CARE 145 MG/DL (70-110)
[2022-04-28] MEDS: INSULIN LISPRO 100 UNITS/ML SQ PRN (12:04)
[2022-04-28] MEDS ORDERED: ONDANSETRON HCL 4 MG/2 ML VIAL IVP STA (13:14)
[2022-04-28] MEDS: HYDROCODONE/ACETAMINOPHEN 10-325 MG TABLET PO PRN ×2 (16:46→22:27)
[2022-04-28] MEDS: METOPROLOL TARTRATE 25 MG TABLET PO SCH (21:00)
[2022-04-28] MEDS: INSULIN GLARGINE,HUM.REC.ANLOG 100 UNITS/ML SQ SCH (21:03)
[2022-04-29] MEDS: CefTRIAXone 1 GM/DEXTROSE 50 ML IV SCH (04:14)
[2022-04-29] MEDS: HYDROCODONE/ACETAMINOPHEN 10-325 MG TABLET PO PRN ×2 (04:15→12:55)
[2022-04-29 04:33] VITALS: BP 136/69
[2022-04-29 04:56] LABS: GLUCOMETER DEV NAME(LOC) 5N.3; GLUCOSE,POINT OF CARE 127 MG/DL (70-110)
[2022-04-29 04:57] LABS: GLUCOMETER DEV NAME(LOC) 5N.3; GLUCOSE,POINT OF CARE 151 MG/DL (70-110)
[2022-04-29 04:57] LABS: GLUCOMETER DEV NAME(LOC) 5N.3; GLUCOSE,POINT OF CARE 78 MG/DL (70-110)
[2022-04-29 07:19] VITALS: BP 141/89
[2022-04-29] MEDS: OXYGEN THERAPY IH SCH (08:00)
[2022-04-29] MEDS: METOPROLOL TARTRATE 25 MG TABLET PO SCH (08:29)
[2022-04-29] MEDS: CITRIC ACID/SODIUM CITRATE 30 ML SOLUTION UDCUP PO SCH (08:29)
[2022-04-29] MEDS: HEPARIN SODIUM,PORCINE 5,000 UNITS/ML VIAL SQ SCH (08:29)
[2022-04-29] MEDS: AmLODIPine BESYLATE 10 MG TABLET PO SCH (08:29)
[2022-04-29] MEDS: ONDANSETRON HCL 4 MG/2 ML VIAL IVP PRN (08:35)
[2022-04-29 11:01] VITALS: BP 111/67
[2022-04-29 13:31] LABS: GLUCOMETER DEV NAME(LOC) 5S.2B; GLUCOSE,POINT OF CARE 96 MG/DL (70-110)
== END 2022-04-29 14:00 | disposition home or self-care (01) | DRG 444 ==
LOC: EMS 19:20 → 5N 04-23 00:42
PROVIDERS: ADMIT Internal Medicine; ATTEND Internal Medicine
PROC: 03180ZD Bypass Left Brachial Artery to Upper Arm Vein, Open Approach (ICD-10-PCS; principal; 2022-04-26 10:15)
DX: I12.0 Hypertensive chronic kidney disease with stage 5 chronic kidney disease or end stage renal disease (principal); N17.9 Acute kidney failure, unspecified; E87.2 Acidosis; D63.8 Anemia in other chronic diseases classified elsewhere; E11.22 Type 2 diabetes mellitus with diabetic chronic kidney disease; E11.319 Type 2 diabetes mellitus with unspecified diabetic retinopathy without macular edema; E11.40 Type 2 diabetes mellitus with diabetic neuropathy, unspecified; E78.5 Hyperlipidemia, unspecified; E87.5 Hyperkalemia; I16.0 Hypertensive urgency; E87.6 Hypokalemia; N39.0 Urinary tract infection, site not specified; Z20.822 Contact with and (suspected) exposure to COVID-19; N18.6 End stage renal disease; E87.70 Fluid overload, unspecified; Z79.899 Other long term (current) drug therapy; Z99.2 Dependence on renal dialysis; Z82.49 Family history of ischemic heart disease and other diseases of the circulatory system; Z83.3 Family history of diabetes mellitus; Z91.040 Latex allergy status
CPT/HCPCS: 71045; 76536; 76770; 80048; 80053; 81001; 81002; 81050; 82043; 82550; 82570; 82575; 82728; 82962; 83036; 83540; 83550; 83735; 83880; 83970; 84100; 84145; 84156; 84166; 84300; 84443; 84484; 84540; 84702; 85025; 85610; 85730; 87040; 87086; 93005; 93970; 93971; 99285; J0131; J0360; J0690; J0696; J1644; J1815; J1940; J2250; J2405; J2704; J3010; J3490; J7030; J7050; Q9967; 36415-L1; 36415-TC; Z7610

== ENCOUNTER 2023-05-21 16:44 | Emergency (ER) | payer MEDICARE, OTHER ==
[~2023-05-21] VITALS: Ht 162.6 cm; Wt 59.1 kg
[~2023-05-21 16:44] MED LIST changes: +ALBU18HF12 IH; -AMLO10TA55 PO; +AZEL6DRO5 OU; -GLIP5TAB11 PO; -HYDR25TA2 PO; -INSU100I26 SQ; -LOSA100T58 PO
[2023-05-21 16:53] VITALS: TEMP 98.5
[2023-05-21] MEDS ORDERED: ISOS30TA92 PO (16:54)
[2023-05-21] MEDS ORDERED: FURO40TA5 PO (16:54)
[2023-05-21] MEDS ORDERED: INSU100I26 SQ (16:54)
[2023-05-21] MEDS ORDERED: LOSA-381 PO (16:54)
[2023-05-21] MEDS ORDERED: AMOX1TAB15 PO (16:54)
[2023-05-21 17:06] LABS: GLUCOMETER DEV NAME(LOC) ERT.5
[2023-05-21] MEDS ORDERED: CYCLOBENZAPRINE HCL 10 MG TABLET PO ONE (19:15)
[2023-05-21] MEDS ORDERED: LIDOCAINE 5% TRANSDERMAL PATCH TD ONE (19:15)
[2023-05-21] MEDS ORDERED: HYDROCODONE/ACETAMINOPHEN 5-325 MG TABLET PO ONE (19:15)
[2023-05-21] MEDS ORDERED: CYCL-448 PO (20:37)
[2023-05-21] MEDS ORDERED: LIDO700A15 TP (20:37)
[2023-05-21 20:54] VITALS: BP 147/79; PULSE 67; RESP 15
== END 2023-05-21 21:34 | disposition home or self-care (01) ==
LOC: EMS 16:45
DX: M62.838 Other muscle spasm (principal); M25.512 Pain in left shoulder; E11.9 Type 2 diabetes mellitus without complications; I10 Essential (primary) hypertension; Z98.890 Other specified postprocedural states; Z91.040 Latex allergy status
CPT/HCPCS: 82962; 99284

== ENCOUNTER 2024-01-15 01:18 | Inpatient (IN) | payer OTHER ==
[2024-01-15] VITALS (14 sets, daily range): BP systolic 115–205; BP diastolic 67–103; PULSE 82–99; RESP 8–18; TEMP 96.8–98.8
[~2024-01-15] VITALS: Ht 160 cm; Wt 73.7 kg
[~2024-01-15 01:18] MED LIST changes: +AMOX1TAB15 PO; +CYCL-448 PO; +FURO40TA5 PO; +INSU100I26 SQ; +ISOS30TA92 PO; +LIDO700A15 TP; +LOSA-381 PO
[2024-01-15 01:41] LABS: BASOPHILS % (AUTO) 1.6 % (0.0-2.0); HEMATOCRIT 30.4 % (36-46); HEMOGLOBIN 10.1 g/dL (12.0-16.0); LYMPHOCYTES % (AUTO) 21.4 % (22.0-44.0); MEAN CORPUSCULAR HEMOGLOBIN 33.6 pg (26.0-34.0); MEAN CORPUSCULAR HGB CONC 33.3 G/dL (31.0-37.0); MEAN CORPUSCULAR VOLUME 101 fL (80-100); MONOCYTES # (AUTO) 0.9 K/uL (0.1-1.0); MONOCYTES % (AUTO) 9.7 % (2.0-9.0); NEUTROPHILS # (AUTO) 5.9 K/uL (1.8-7.7); NEUTROPHILS % (AUTO) 63.3 % (40.0-70.0); PLATELET COUNT (AUTO) 360 K/uL (150-450); RED BLOOD CELL COUNT(AUTO) 3.02 MIL/uL (4.00-5.20); WHITE BLOOD COUNT (AUTO) 9.3 K/uL (4.5-11.0)
[2024-01-15 01:50] LABS: CALCIUM, TOTAL 9.2 mg/dL (8.8-10.5); CREATININE 9.6 mg/dL (0.60-1.30); POTASSIUM 5.1 mmol/L (3.5-5.1)
[2024-01-15 01:58] LABS: ALBUMIN 3.7 g/dL (3.4-5.0); BILIRUBIN,TOTAL 0.8 mg/dL (0.1-1.0); MAGNESIUM 3.1 mg/dL (1.80-2.40); TOTAL PROTEIN, SERUM 8.1 g/dL (6.4-8.2); TROPONIN I-HIGH SENSITIVITY 22 ng/L (<51)
[2024-01-15 02:12] LABS: COVID AG,FIA SOURCE NASAL SWAB
[2024-01-15] MEDS: NITROGLYCERIN 50 MG/D5% WATER 250 ML IV PRN (02:22)
[2024-01-15] MEDS: ACETAMINOPHEN 325 MG TABLET PO ONE (02:22)
[2024-01-15 02:30] LABS: INFLUENZA TYPE A NEGATIVE FOR TYPE A (NEGATIVE); INFLUENZA TYPE B NEGATIVE FOR TYPE B (NEGATIVE); SARS-COV2 (COVID) ANTIGEN,FIA Negative (Negative)
[2024-01-15] MEDS ORDERED: 0.9% SODIUM CHLORIDE 10 ML SYRINGE IVP PRN (03:15)
[2024-01-15] MEDS ORDERED: ONDANSETRON HCL 4 MG/2 ML VIAL IVP PRN ×2 (03:15→21:30)
[2024-01-15] MEDS: MORPHINE SULFATE 2 MG/ML SYRINGE IVP ONE (04:35)
[2024-01-15] MEDS: ACETAMINOPHEN 325 MG TABLET PO PRN (06:24)
[2024-01-15] MEDS ORDERED: BISACODYL 10 MG RECTAL RECTAL SUPPOSITORY PR PRN (08:00)
[2024-01-15] MEDS ORDERED: MORPHINE SULFATE 2 MG/ML SYRINGE IVP PRN (08:00)
[2024-01-15] MEDS: AmLODIPine BESYLATE 10 MG TABLET PO SCH (08:29)
[2024-01-15] MEDS: CloNIDine HCL 0.1 MG TABLET PO PRN (08:29)
[2024-01-15] MEDS: DOCUSATE SODIUM 100 MG CAPSULE PO SCH (08:29)
[2024-01-15] MEDS: FAMOTIDINE 20 MG TABLET PO SCH (08:29)
[2024-01-15] MEDS: HEPARIN SODIUM,PORCINE 5,000 UNITS/ML VIAL SQ SCH (08:29)
[2024-01-15] MEDS ORDERED: DEXTROSE 50%-WATER 25 GM/50 ML SYRINGE IVP PRN (09:00)
[2024-01-15 09:29] LABS: TROPONIN I-HIGH SENSITIVITY 23 ng/L (<51)
[2024-01-15] MEDS: OxyCODONE HCL/ACETAMINOPHEN 5-325 MG TABLET PO PRN (09:44)
[2024-01-15] MEDS: LOSARTAN POTASSIUM 50 MG TABLET PO SCH (10:14)
[2024-01-15] MEDS: HydrALAZINE HCL 20 MG/ML VIAL IVP SCH (10:14)
[2024-01-15] MEDS: FOLIC ACID/VIT B COMPLEX AND C TABLET PO SCH (10:14)
[2024-01-15] MEDS: CALCITRIOL 0.25 MCG CAPSULE PO SCH (10:14)
[2024-01-15] MEDS: SEVELAMER CARBONATE 800 MG TABLET PO SCH (12:04)
[2024-01-15] MEDS: INSULIN LISPRO 100 UNITS/ML SQ PRN (12:26)
[2024-01-15 14:01] LABS: GLUCOMETER DEV NAME(LOC) ICU.S6; GLUCOSE,POINT OF CARE 192 MG/DL (70-110)
[2024-01-15] MEDS: MAGNESIUM OXIDE 400 MG TABLET PO ONE (16:28)
[2024-01-15 17:25] LABS: GLUCOMETER DEV NAME(LOC) ICU.S6; GLUCOSE,POINT OF CARE 140 MG/DL (70-110)
[2024-01-15] MEDS: CHLORHEXIDINE GLUCONATE 2% TOWELETTE [2'S/6'S] TP SCH (21:36)
[2024-01-15] MEDS: ONDANSETRON HCL 4 MG/2 ML VIAL IVP PRN (21:36)
[2024-01-15 22:26] LABS: GLUCOMETER DEV NAME(LOC) ICU.S6; GLUCOSE,POINT OF CARE 162 MG/DL (70-110)
[2024-01-16] VITALS (15 sets, daily range): BP systolic 123–175; BP diastolic 65–90; PULSE 88–99; RESP 16–22; TEMP 97.5–98.7
[2024-01-16] MEDS: NITROGLYCERIN 50 MG/D5% WATER 250 ML IV PRN (03:01)
[2024-01-16] MEDS ORDERED: SODIUM CHLORIDE 0.9% 100 ML ONE (04:39)
[2024-01-16] MEDS ORDERED: IOHEXOL 350 MG/ML 100 ML VIAL ONE (04:40)
[2024-01-16 06:07] LABS: BASOPHILS % (AUTO) 0.8 % (0.0-2.0); EOSINOPHILS % (AUTO) 1.2 % (1.0-6.0); HEMATOCRIT 27.6 % (36-46); HEMOGLOBIN 9.2 g/dL (12.0-16.0); LYMPHOCYTES # (AUTO) 0.8 K/uL (1.0-4.8); LYMPHOCYTES % (AUTO) 8.2 % (22.0-44.0); MEAN CORPUSCULAR HEMOGLOBIN 33.6 pg (26.0-34.0); MEAN CORPUSCULAR HGB CONC 33.3 G/dL (31.0-37.0); MEAN CORPUSCULAR VOLUME 101 fL (80-100); MONOCYTES # (AUTO) 0.7 K/uL (0.1-1.0); MONOCYTES % (AUTO) 6.7 % (2.0-9.0); NEUTROPHILS # (AUTO) 8.1 K/uL (1.8-7.7); NEUTROPHILS % (AUTO) 83.1 % (40.0-70.0); PLATELET COUNT (AUTO) 306 K/uL (150-450); RED BLOOD CELL COUNT(AUTO) 2.74 MIL/uL (4.00-5.20); RED CELL DISTRIBUTION WIDTH 14.2 % (11.5-14.5); WHITE BLOOD COUNT (AUTO) 9.7 K/uL (4.5-11.0)
[2024-01-16 06:12] LABS: ALBUMIN 3.1 g/dL (3.4-5.0); BILIRUBIN,TOTAL 0.9 mg/dL (0.1-1.0); CALCIUM, TOTAL 8.7 mg/dL (8.8-10.5); CREATININE 5.67 mg/dL (0.60-1.30); PHOSPHORUS 4.5 mg/dL (2.5-4.9); POTASSIUM 4.9 mmol/L (3.5-5.1); TOTAL PROTEIN, SERUM 7.2 g/dL (6.4-8.2)
[2024-01-16 06:50] LABS: GLUCOMETER DEV NAME(LOC) ICU.S6; GLUCOSE,POINT OF CARE 192 MG/DL (70-110)
[2024-01-16] MEDS: ACETAMINOPHEN 325 MG TABLET PO PRN (10:19)
[2024-01-16] MEDS ORDERED: LIDOCAINE/PF 1% 2 ML VIAL IM ONE (12:00)
[2024-01-16] MEDS: HydrALAZINE HCL 50 MG TABLET PO SCH (16:28)
[2024-01-16 17:26] LABS: GLUCOMETER DEV NAME(LOC) ICU.S6; GLUCOSE,POINT OF CARE 153 MG/DL (70-110)
[2024-01-16 19:16] LABS: GLUCOMETER DEV NAME(LOC) ICUN.5; GLUCOSE,POINT OF CARE 210 MG/DL (70-110)
[2024-01-16] MEDS: BENZONATATE 100 MG CAPSULE PO PRN (21:24)
[2024-01-16] MEDS: GABAPENTIN 100 MG CAPSULE PO ONE (22:50)
[2024-01-17] VITALS: BP 150/106; PULSE 92; RESP 16; TEMP 98.6
[2024-01-17] MEDS: LABETALOL HCL 100 MG TABLET PO SCH (00:05)
[2024-01-17 00:31] LABS: GLUCOMETER DEV NAME(LOC) ICUN.5; GLUCOSE,POINT OF CARE 169 MG/DL (70-110)
[2024-01-17 04:00] VITALS: BP 124/74; PULSE 85; RESP 23; TEMP 98.6
[2024-01-17 06:26] LABS: GLUCOMETER DEV NAME(LOC) ICU.S6; GLUCOSE,POINT OF CARE 144 MG/DL (70-110)
[2024-01-17 06:28] LABS: CALCIUM, TOTAL 8.9 mg/dL (8.8-10.5); CREATININE 5.22 mg/dL (0.60-1.30); POTASSIUM 4.6 mmol/L (3.5-5.1)
[2024-01-17 06:32] LABS: BASOPHILS % (AUTO) 0.8 % (0.0-2.0); HEMATOCRIT 27.1 % (36-46); LYMPHOCYTES # (AUTO) 1.4 K/uL (1.0-4.8); LYMPHOCYTES % (AUTO) 17.5 % (22.0-44.0); MEAN CORPUSCULAR HEMOGLOBIN 33.8 pg (26.0-34.0); MEAN CORPUSCULAR HGB CONC 33.1 G/dL (31.0-37.0); MEAN CORPUSCULAR VOLUME 102 fL (80-100); MONOCYTES # (AUTO) 0.9 K/uL (0.1-1.0); MONOCYTES % (AUTO) 10.3 % (2.0-9.0); NEUTROPHILS # (AUTO) 5.6 K/uL (1.8-7.7); NEUTROPHILS % (AUTO) 67.4 % (40.0-70.0); PLATELET COUNT (AUTO) 290 K/uL (150-450); RED BLOOD CELL COUNT(AUTO) 2.65 MIL/uL (4.00-5.20); RED CELL DISTRIBUTION WIDTH 14.3 % (11.5-14.5); WHITE BLOOD COUNT (AUTO) 8.3 K/uL (4.5-11.0)
[2024-01-17 06:36] LABS: ALBUMIN 3.1 g/dL (3.4-5.0); BILIRUBIN,TOTAL 0.8 mg/dL (0.1-1.0); MAGNESIUM 2.6 mg/dL (1.80-2.40); TOTAL PROTEIN, SERUM 7.1 g/dL (6.4-8.2)
[2024-01-17] MEDS ORDERED: LOSA-382 PO (07:57)
[2024-01-17] MEDS ORDERED: LABE100T51 PO (07:58)
[2024-01-17] MEDS ORDERED: HYDR50TA36 PO (07:59)
[2024-01-17 08:00] VITALS: BP 145/81; PULSE 86; RESP 18; TEMP 98.1
[2024-01-17] MEDS ORDERED: AMLO-258 PO (08:21)
== END 2024-01-17 10:10 | disposition home or self-care (01) | DRG 304 ==
LOC: EMS 01:18 → ICU 04:23
PROVIDERS: ADMIT Internal Medicine; ATTEND Internal Medicine
PROC: 5A1D70Z Performance of Urinary Filtration, Intermittent, Less than 6 Hours Per Day (ICD-10-PCS; principal; 2024-01-15)
PROC: 5A1D70Z Performance of Urinary Filtration, Intermittent, Less than 6 Hours Per Day (ICD-10-PCS; 2024-01-16)
DX: I16.1 Hypertensive emergency (principal); N18.6 End stage renal disease; E11.22 Type 2 diabetes mellitus with diabetic chronic kidney disease; I12.0 Hypertensive chronic kidney disease with stage 5 chronic kidney disease or end stage renal disease; Z20.822 Contact with and (suspected) exposure to COVID-19; D63.1 Anemia in chronic kidney disease; E11.40 Type 2 diabetes mellitus with diabetic neuropathy, unspecified; Z79.899 Other long term (current) drug therapy; Z79.4 Long term (current) use of insulin; Z99.2 Dependence on renal dialysis; Z83.3 Family history of diabetes mellitus
CPT/HCPCS: 71045; 71260; 72193; 74160; 80053; 82550; 82962; 83735; 83880; 84100; 84484; 84703; 85025; 85730; 87081; 87340; 87804; 90935; 93005; 93306; 99285; J0360; J1644; J2270; J2405; J3490; J7050; Q9967; 36415-L1; 36415-TC

== ENCOUNTER 2024-03-19 02:45 | Emergency (ER) | payer OTHER ==
[~2024-03-19] VITALS: Ht 162.6 cm; Wt 56.4 kg
[~2024-03-19 02:45] MED LIST changes: -AMOX1TAB15 PO; -AZEL6DRO5 OU; -CETI10TA58 PO; -CYCL-448 PO; -FURO40TA5 PO; +HYDR50TA36 PO; -INSU100I26 SQ; +LABE100T51 PO; -LIDO700A15 TP; -LOSA-381 PO; +LOSA-382 PO; +PANT-31 PO
[2024-03-19 02:51] VITALS: TEMP 98.3
[2024-03-19 03:11] LABS: GLUCOMETER DEV NAME(LOC) ERT.5; GLUCOSE,POINT OF CARE 181 MG/DL (70-110)
[2024-03-19 03:37] LABS: BASOPHILS % (AUTO) 1.7 % (0.0-2.0); EOSINOPHILS % (AUTO) 4.1 % (1.0-6.0); HEMATOCRIT 30.7 % (36-46); HEMOGLOBIN 10.2 g/dL (12.0-16.0); LYMPHOCYTES # (AUTO) 2.3 K/uL (1.0-4.8); LYMPHOCYTES % (AUTO) 28.3 % (22.0-44.0); MEAN CORPUSCULAR HEMOGLOBIN 32.5 pg (26.0-34.0); MEAN CORPUSCULAR HGB CONC 33.3 G/dL (31.0-37.0); MEAN CORPUSCULAR VOLUME 98 fL (80-100); MONOCYTES # (AUTO) 0.9 K/uL (0.1-1.0); MONOCYTES % (AUTO) 11.7 % (2.0-9.0); NEUTROPHILS # (AUTO) 4.3 K/uL (1.8-7.7); NEUTROPHILS % (AUTO) 54.2 % (40.0-70.0); PLATELET COUNT (AUTO) 295 K/uL (150-450); RED BLOOD CELL COUNT(AUTO) 3.15 MIL/uL (4.00-5.20); RED CELL DISTRIBUTION WIDTH 16.4 % (11.5-14.5)
[2024-03-19 03:48] LABS: CALCIUM, TOTAL 9.9 mg/dL (8.8-10.5); CREATININE 5.69 mg/dL (0.60-1.30); POTASSIUM 4.4 mmol/L (3.5-5.1)
[2024-03-19] MEDS: HYDROCODONE/ACETAMINOPHEN 5-325 MG TABLET PO ONE (03:51)
[2024-03-19 04:41] VITALS: BP 186/98; PULSE 83; RESP 20
[2024-03-19] MEDS ORDERED: HYDR-4062 PO (04:41)
== END 2024-03-19 04:58 | disposition home or self-care (01) ==
LOC: EMS 02:45
DX: H53.9 Unspecified visual disturbance (principal); E11.9 Type 2 diabetes mellitus without complications; I10 Essential (primary) hypertension; Z98.890 Other specified postprocedural states; Z91.040 Latex allergy status; H54.40 Blindness, one eye, unspecified eye
CPT/HCPCS: 70450; 80048; 82962; 85025; 99284